=== PATIENT | female | born 1975 | race Two or more races ===

== ENCOUNTER 2016-12-24 05:00 | Emergency (ER) | payer MEDICAID ==
[2016-12-24 05:06] VITALS: RESP 16
[2016-12-24] MEDS ORDERED: ONDANSETRON 4 MG/2 ML VIAL IVP ONE (05:13)
[2016-12-24] MEDS ORDERED: HYDROmorphONE/DILAUDID 1 MG/ML SYR IVP ONE (05:13)
[2016-12-24] MEDS ORDERED: NS 1,000 ML IV ONE (05:13)
--- NOTE | 2016-12-24 05:16 | EDPHY ---
H & P Stated Complaint: abd pain, green/bea like stool, Hx of gallstones Time Seen by Provider: 12/24/16 05:09 HPI/ROS: CHIEF COMPLAINT: Right upper quadrant pain HISTORY OF PRESENT ILLNESS: The patient is a 41-year-old female who comes to the emergency department complaining of right upper quadrant pain that radiates to her back. She has had the symptoms intermittently the last several years and has been told that she needs her gallbladder out. She is scheduled to have it out in February. She developed pain this morning around 3:00 a.m. the woke from sleep. She has vomited once. She denies having any fevers or hematemesis. REVIEW OF SYSTEMS: Constitutional: denies: chills, fever, recent illness, recent injury EENTM: denies: blurred vision, double vision, nose congestion Respiratory: denies: cough, shortness of breath Cardiac: denies: chest pain, irregular heart rate, lightheadedness, palpitations Gastrointestinal/Abdominal: denies: abdominal pain, diarrhea, nausea, vomiting, blood streaked stools Genitourinary: denies: dysuria, frequency, hematuria, pain Musculoskeletal: denies: joint pain, muscle pain Skin: denies: lesions, rash, jaundice, bruising Neurological: denies: headache, numbness, paresthesia, tingling, dizziness, weakness Hematologic/Lymphatic: denies: blood clots, easy bleeding, easy bruising Immunologic/allergic: denies: HIV/AIDS, transplant EXAM: GENERAL: Well-appearing, well-nourished and in no acute distress. HEAD: Atraumatic, normocephalic. EYES: Pupils equal round and reactive to light, extraocular movements intact, sclera anicteric, conjunctiva are normal. ENT: TMs normal, nares patent, oropharynx clear without exudates. Moist mucous membranes. NECK: Normal range of motion, supple without lymphadenopathy or JVD. LUNGS: Breath sounds clear to auscultation bilaterally and equal. No wheezes rales or rhonchi. HEART: Regular rate and rhythm without murmurs, rubs or gallops. ABDOMEN: Soft, nontender, normoactive bowel sounds. No guarding, no rebound. No masses appreciated. BACK: No CVA tenderness, no spinal tenderness, step-offs or deformities EXTREMITIES: Normal range of motion, no pitting or edema. No clubbing or cyanosis. NEUROLOGICAL: Cranial nerves II through XII grossly intact. Normal speech, normal gait. 5/5 strength, normal movement in all extremities, normal sensation PSYCH: Normal mood, normal affect. SKIN: Warm, dry, normal turgor, no visible rashes or lesions. Source: Patient Exam Limitations: No limitations - Personal History LMP (Females 10-55): 15-21 Days Ago Current Tetanus/Diphtheria Vaccine: Yes Tetanus Vaccine Date: 2015 - Medical/Surgical History Hx Asthma: No Hx Chronic Respiratory Disease: No Hx Diabetes: No Hx Cardiac Disease: No Hx Renal Disease: No Hx Cirrhosis: No Hx Alcoholism: No Hx HIV/AIDS: No Hx Splenectomy or Spleen Trauma: No Other PMH: PMHx: Gall stones. PSHx: denies - Family History Significant Family History: No pertinent family hx - Social History Smoking Status: Current every day smoker Alcohol Use: Sober Drug Use: None Constitutional: Initial Vital Signs Temperature (C) 36.3 C 12/24/16 05:02 Heart Rate 66 12/24/16 05:02 Respiratory Rate 16 12/24/16 05:02 Blood Pressure 127/76 H 12/24/16 05:02 O2 Sat (%) 97 12/24/16 05:02 O2 Delivery Mode Nasal Cannula O2 (L/minute) 2 Allergies/Adverse Reactions: No Known Allergies Allergy (Verified 07/09/16 08:48) Home Medications: Medication Instructions Recorded Ondansetron Odt [Zofran Odt 4 mg 4 mg PO Q4 PRN #20 tab 12/24/16 (RX)] oxyCODONE/APAP 5/325 [Percocet 1 - 2 tab PO Q4H PRN #7 tab 12/24/16 5/325 (*)] Medical Decision Making - Diagnostics Imaging: Discussed imaging studies w/ docket specialist Radiologist ED Course/Re-evaluation: 6:15 a.m. the patient is feeling much better. We discussed her imaging and lab results which are reassuring. Her LFTs are slightly elevated but significantly improved compared to her last visit. She has an appointment to have her gallbladder out Dr. Rouse. I encouraged her to keep this plan. She will follow up with [facility]-for repeat lab work . She is requesting oxycodone for pain control and I will also give her a take-home pack of Zofran. We discussed indications for returning to the emergency department. Differential Diagnosis: Partial list of the Differential diagnosis considered include but were not limited to; gallstone, pancreatitis, hepatitis and although unlikely based on the history and physical exam, I also considered peptic ulcer disease, appendicitis, diverticulitis, hernia. I discussed these differential diagnoses and the plan with the patient as well as the usual and expected course. The patient understands that the diagnosis is provisional and that in medicine we are not always correct and that further workup is often warranted. Usual and customary warnings were given. All of the patient's questions were answered. The patient was instructed to return to the emergency department should the symptoms at all worsen or return, otherwise to followup with the physician as we discussed. - Data Points Laboratory Results: Laboratory Results 12/24/16 05:25 12/24/16 05:25 12/24/16 12/24/16 12/24/16 05:25 05:25 05:25 WBC 10.45 10^3/uL H 10^3/uL (3.80-9.50) RBC 4.54 10^6/uL 10^6/uL (4.18-5.33) Hgb 14.3 g/dL g/dL (12.6-16.3) Hct 42.2 % % (38.0-47.0) MCV 93.0 fL fL (81.5-99.8) MCH 31.5 pg pg (27.9-34.1) MCHC 33.9 g/dL g/dL (32.4-36.7) RDW 12.8 % % (11.5-15.2) Plt Count 371 10^3/uL 10^3/uL (150-400) MPV 9.8 fL fL (8.7-11.7) Neut % (Auto) 62.3 % % (39.3-74.2) Lymph % (Auto) 25.5 % % (15.0-45.0) [place] % (Auto) 7.4 % % (4.5-13.0) Eos % (Auto) 3.6 % % (0.6-7.6) Baso % (Auto) 0.6 % % (0.3-1.7) Nucleat RBC Rel Count 0.0 % % (0.0-0.2) Absolute Neuts (auto) 6.52 10^3/uL H 10^3/uL (1.70-6.50) Absolute Lymphs (auto) 2.66 10^3/uL 10^3/uL (1.00-3.00) Absolute Monos (auto) 0.77 10^3/uL 10^3/uL (0.30-0.80) Absolute Eos (auto) 0.38 10^3/uL 10^3/uL (0.03-0.40) Absolute Basos (auto) 0.06 10^3/uL 10^3/uL (0.02-0.10) Absolute Nucleated RBC 0.00 10^3/uL 10^3/uL (0-0.01) Immature Gran % 0.6 % % (0.0-1.1) Immature Gran # 0.06 10^3/uL 10^3/uL (0.00-0.10) Sodium 136 mEq/L mEq/L (134-144) Potassium 4.1 mEq/L mEq/L (3.5-5.2) Chloride 105 mEq/L mEq/L (97-110) Carbon Dioxide 23 mEq/l mEq/l (22-31) Anion Gap 8 mEq/L mEq/L (8-16) BUN 14 mg/dL mg/dL (7-23) Creatinine 0.6 mg/dL mg/dL (0.6-1.0) Estimated GFR > 60 Glucose 103 mg/dL H mg/dL (70-100) Calcium 9.4 mg/dL mg/dL (8.5-10.4) Total Bilirubin 0.6 mg/dL mg/dL (0.1-1.4) Conjugated Bilirubin 0.4 mg/dL mg/dL (0.0-0.5) Unconjugated Bilirubin 0.2 mg/dL mg/dL (0.0-1.1) AST 143 IU/L H IU/L (14-46) ALT 119 IU/L H IU/L (9-52) Alkaline Phosphatase 73 IU/L IU/L (38-126) Total Protein 7.5 g/dL g/dL (6.3-8.2) Albumin 4.4 g/dL g/dL (3.5-5.0) Lipase 61.0 IU/L IU/L (23-300) Beta HCG, Qual NEGATIVE Medications Given: Discontinued Medications Hydromorphone HCl (Dilaudid) 1 mg IVP EDNOW ONE Stop: 12/24/16 05:14 Last Admin: 12/24/16 05:31 Dose: 1 mg Sodium Chloride (Ns) 1,000 mls @ 0 mls/hr IV ONCE ONE PRN Reason: Wide Open Stop: 12/24/16 05:14 Last Admin: 12/24/16 05:30 Dose: 1,000 mls Ondansetron HCl (Zofran) 4 mg IVP EDNOW ONE Stop: 12/24/16 05:14 Last Admin: 12/24/16 05:31 Dose: 4 mg Ondansetron HCl (Zofran Odt 4 Mg Prepack#2) 1 btl TAKEHOME EDNOW ONE Stop: 12/24/16 06:15 Last Admin: 12/24/16 06:25 Dose: 1 btl Oxycodone/Acetaminophen (Percocet 5/325mg Prepack#4) 1 btl TAKEHOME EDNOW ONE Stop: 12/24/16 06:15 Last Admin: 12/24/16 06:26 Dose: 1 btl Departure - Departure Disposition: Home, Routine, Self-Care Clinical Impression: Gallstone Qualifiers: Cholecystitis presence: without cholecystitis Biliary obstruction: without biliary obstruction Qualified Code(s): K80.20 - Calculus of gallbladder without cholecystitis without obstruction Condition: Fair Instructions: Oxycodone/Acetaminophen (By mouth), Ondansetron (By mouth), Biliary Colic (ED), Gallstones (ED) Referrals: Renetta Byrne NP [Primary Care Provider] - As per Instructions Ashly oRuse MD [Medical Doctor] - As per Instructions Prescriptions: Ondansetron Odt [Zofran Odt 4 mg (RX)] 4 mg PO Q4 PRN #20 tab PRN Reason: Nausea & Vomiting oxyCODONE/APAP 5/325 [Percocet 5/325 (*)] 1 - 2 tab PO Q4H PRN #7 tab PRN Reason: Pain, Severe
[2016-12-24 05:43] LABS: % IMMATURE GRANULYOCYTES 0.6 % (0.0-1.1); ABSOLUTE IMMATURE GRANULOCYTES 0.06 10^3/uL (0.00-0.10); ADD DIFF? NO; ADD MORPH? NO; ADD SCAN? NO; ATYPICAL LYMPHOCYTE FLAG 20 (0-99); FRAGMENT RBC FLAG 0 (0-99); HEMATOCRIT 42.2 % (38.0-47.0); HEMOGLOBIN 14.3 g/dL (12.6-16.3); LEFT SHIFT FLG 0 (0-99); LIPEMIA HEMOLYSIS FLAG 90 (0-99); MEAN CELL HEMOGLOBIN 31.5 pg (27.9-34.1); MEAN CELL HEMOGLOBIN CONCENTR. 33.9 g/dL (32.4-36.7); MEAN PLATELET VOLUME 9.8 fL (8.7-11.7); PLATELET CLUMPS FLAG 0 (0-99); PLATELET COUNT 371 10^3/uL (150-400); RED BLOOD CELL COUNT 4.54 10^6/uL (4.18-5.33); RED CELL DISTRIBUTION WIDTH 12.8 % (11.5-15.2)
[2016-12-24 05:55] LABS: ALANINE AMINOTRANSFERASE 119 IU/L (9-52); ALBUMIN 4.4 g/dL (3.5-5.0); ALKALINE PHOSPHATASE 73 IU/L (38-126); ANION GAP 8 mEq/L (8-16); ASPARTATE AMINOTRANSFERASE 143 IU/L (14-46); BILIRUBIN,TOTAL 0.6 mg/dL (0.1-1.4); BILIRUBIN-CONJUGATED 0.4 mg/dL (0.0-0.5); BILIRUBIN-UNCONJUGATED 0.2 mg/dL (0.0-1.1); CALCIUM 9.4 mg/dL (8.5-10.4); CARBON DIOXIDE 23 mEq/l (22-31); CHLORIDE 105 mEq/L (97-110); CREATININE 0.6 mg/dL (0.6-1.0); GLOMERULAR FILTRATION RATE > 60; GLUCOSE 103 mg/dL (70-100); POTASSIUM 4.1 mEq/L (3.5-5.2); SODIUM 136 mEq/L (134-144); TOTAL PROTEIN 7.5 g/dL (6.3-8.2)
[2016-12-24 06:07] VITALS: BP 108/60; PULSE 61; O2SAT 95
[2016-12-24] MEDS ORDERED: OXYCODONE/APAP 5/325MG PREPACK#4 BTL TAKEHOME ONE (06:14)
[2016-12-24] MEDS ORDERED: ONDANSETRON 4MG PREPACK#2 BTL TAKEHOME ONE (06:14)
[2016-12-24 06:28] VITALS: TEMP 97.7
== END 2016-12-24 06:28 | disposition home or self-care (01) ==
DX: K80.20 Calculus of gallbladder without cholecystitis without obstruction (principal); F17.200 Nicotine dependence, unspecified, uncomplicated
CPT/HCPCS: 96374; J1170; J2405

== ENCOUNTER 2016-12-27 15:01 | Emergency (ER) | payer MEDICAID ==
[2016-12-27] MEDS ORDERED: OXYCODONE/APAP 5/325 TAB PO ONE (15:14)
[2016-12-27] MEDS ORDERED: NS 1,000 ML IV ONE (16:08)
--- NOTE | 2016-12-27 16:24 | EDPHY ---
H & P Time Seen by Provider: 12/27/16 16:05 HPI/ROS: Chief complaint. Abdominal pain HPI. 41-year-old female seen on December 24 for abdominal pain with diagnosis of cholelithiasis but not cholecystitis. She had been vomiting and having right upper quadrant abdominal pain that was worse after eating. With medication in the emergency department she felt better. She was discharged with follow-up to surgeon. She has thus appointment with surgeon on January 13. However she continues to have right upper quadrant pain and some bloating. No fever. She has been told previously that she needs her gallbladder taken out. She would like to have it removed as soon as possible. ROS Constitutional. no fever/chills, no weakness Eyes. no problems with vision ENT. no sore throat, no nasal drainage Cardiovascular. no chest pain Respiratory. no shortness of breath, no cough Abdominal. Right upper quadrant abdominal pain with some nausea . no problems urinating MS. no calf pain/swelling, no neck/back pain, no joint pain Skin. no rash Lymph. no swollen glands Neuro. no headache, no dizziness, no difficulty walking or with speech Past Medical/Surgical History: Gallbladder disease Social History: Single, nonsmoker, no alcohol Smoking Status: Former smoker Physical Exam: General Appearance: Alert well-developed female moderate distress vital signs are stable Eyes: Pupils equal and round no pallor or injection. ENT, Mouth: Mucous membranes are moist. Respiratory: There are no retractions, lungs are clear to auscultation. Cardiovascular: Regular rate and rhythm. Gastrointestinal: Abdomen is soft with tenderness in the right upper quadrant. No masses. Bowel sounds normally Neurological: Awake and alert, sensory and motor exams grossly normal. Skin: Warm and dry, no rashes. Musculoskeletal: Neck is supple nontender. Extremities symmetrical, full range of motion. Psychiatric: Patient is oriented X 3, there is no agitation. Constitutional: Initial Vital Signs Temperature (C) 36.8 C 12/27/16 15:11 Heart Rate 87 12/27/16 15:11 Respiratory Rate 17 12/27/16 15:11 Blood Pressure 111/68 12/27/16 15:11 O2 Sat (%) 98 12/27/16 15:11 O2 Delivery Mode Room Air Allergies/Adverse Reactions: No Known Allergies Allergy (Verified 12/27/16 15:11) Home Medications: Medication Instructions Recorded Ondansetron Odt [Zofran Odt 4 mg 4 mg PO Q4 PRN #20 tab 12/24/16 (RX)] oxyCODONE/APAP 5/325 [Percocet 1 - 2 tab PO Q4H PRN #7 tab 12/24/16 5/325 (*)] Ondansetron Odt [Zofran Odt] 4 mg PO Q4PRN PRN #4 tab 12/27/16 oxyCODONE/APAP 5/325 [Percocet 1 tab PO Q4-6PRN PRN #14 tab 12/27/16 5/325] Medical Decision Making Procedures: IV normal saline. Patient was given Percocet at triage ED Course/Re-evaluation: I consulted and discussed case with Dr. Rupali joyner who has seen the patient in consultation previously. Dr. Zapien in a is able to see the patient next week on Friday or the PA can see the patient on Friday and they will schedule surgery for Friday and or Friday next week. If the patient is not okay with this Dr. Rupali joyner asked me to call Dr. Mccabe who is the surgeon data communications analyst today for consultation On re-evaluation patient is stable. I offered to call surgeon data communications analyst as described above. Patient would prefer to wait and see Dr. Brothers or her PA next Friday or Friday Patient is encouraged to return over the weekend for worsening symptoms Differential Diagnosis: I considered cholecystitis , pancreatitis, cholelithiasis - Data Points Laboratory Results: Laboratory Results 12/27/16 16:30 12/27/16 16:30 12/27/16 12/27/16 12/27/16 16:30 16:30 16:30 WBC 9.73 10^3/uL H 10^3/uL (3.80-9.50) RBC 4.37 10^6/uL 10^6/uL (4.18-5.33) Hgb 13.5 g/dL g/dL (12.6-16.3) Hct 40.6 % % (38.0-47.0) MCV 92.9 fL fL (81.5-99.8) MCH 30.9 pg pg (27.9-34.1) MCHC 33.3 g/dL g/dL (32.4-36.7) RDW 12.8 % % (11.5-15.2) Plt Count 381 10^3/uL 10^3/uL (150-400) MPV 10.0 fL fL (8.7-11.7) Neut % (Auto) 62.9 % % (39.3-74.2) Lymph % (Auto) 26.0 % % (15.0-45.0) [place] % (Auto) 8.3 % % (4.5-13.0) Eos % (Auto) 2.1 % % (0.6-7.6) Baso % (Auto) 0.4 % % (0.3-1.7) Nucleat RBC Rel Count 0.0 % % (0.0-0.2) Absolute Neuts (auto) 6.12 10^3/uL 10^3/uL (1.70-6.50) Absolute Lymphs (auto) 2.53 10^3/uL 10^3/uL (1.00-3.00) Absolute Monos (auto) 0.81 10^3/uL H 10^3/uL (0.30-0.80) Absolute Eos (auto) 0.20 10^3/uL 10^3/uL (0.03-0.40) Absolute Basos (auto) 0.04 10^3/uL 10^3/uL (0.02-0.10) Absolute Nucleated RBC 0.00 10^3/uL 10^3/uL (0-0.01) Immature Gran % 0.3 % % (0.0-1.1) Immature Gran # 0.03 10^3/uL 10^3/uL (0.00-0.10) Sodium 141 mEq/L mEq/L (134-144) Potassium 4.1 mEq/L mEq/L (3.5-5.2) Chloride 109 mEq/L mEq/L (97-110) Carbon Dioxide 23 mEq/l mEq/l (22-31) Anion Gap 9 mEq/L mEq/L (8-16) BUN 12 mg/dL mg/dL (7-23) Creatinine 0.6 mg/dL mg/dL (0.6-1.0) Estimated GFR > 60 Glucose 85 mg/dL mg/dL (70-100) Calcium 9.5 mg/dL mg/dL (8.5-10.4) Total Bilirubin 0.4 mg/dL mg/dL (0.1-1.4) Conjugated Bilirubin 0.4 mg/dL mg/dL (0.0-0.5) Unconjugated Bilirubin 0.0 mg/dL mg/dL (0.0-1.1) AST 158 IU/L H IU/L (14-46) ALT 168 IU/L H IU/L (9-52) Alkaline Phosphatase 80 IU/L IU/L (38-126) Total Protein 7.1 g/dL g/dL (6.3-8.2) Albumin 4.4 g/dL g/dL (3.5-5.0) Lipase 69.0 IU/L IU/L (23-300) Beta HCG, Qual NEGATIVE Medications Given: Discontinued Medications Sodium Chloride (Ns) 1,000 mls @ 0 mls/hr IV ONCE ONE PRN Reason: Wide Open Stop: 12/27/16 16:09 Last Admin: 12/27/16 16:29 Dose: 1,000 mls Oxycodone/Acetaminophen (Percocet 5/325) 1 tab PO EDNOW ONE Stop: 12/27/16 15:15 Last Admin: 12/27/16 15:17 Dose: 1 tab Departure - Departure Disposition: Home, Routine, Self-Care Clinical Impression: Abdominal pain Qualifiers: Abdominal location: right upper quadrant Qualified Code(s): R10.11 - Right upper quadrant pain Condition: Good Instructions: Gallstones (ED), Biliary Colic (ED) Additional Instructions: Drink plenty of fluids and stay hydrated. Caution with fatty and oily foods. Percocet as needed for pain. Zofran as needed for nausea. Return over the weekend for worsening symptoms including fever. Call Dr. Meng office on Friday morning for follow-up appointment on Friday with the PA or Friday with Dr. Brothers Referrals: [facility] [Other] - As per Instructions Ashly Rouse MD [Medical Doctor] - 2-3 days without fail Prescriptions: Ondansetron Odt [Zofran Odt] 4 mg PO Q4PRN PRN #4 tab PRN Reason: Nausea/Vomiting, Use 1st oxyCODONE/APAP 5/325 [Percocet 5/325] 1 tab PO Q4-6PRN PRN #14 tab PRN Reason: Pain, Moderate
[2016-12-27 16:40] LABS: % IMMATURE GRANULYOCYTES 0.3 % (0.0-1.1); ABSOLUTE IMMATURE GRANULOCYTES 0.03 10^3/uL (0.00-0.10); ADD DIFF? NO; ADD MORPH? NO; ADD SCAN? NO; ATYPICAL LYMPHOCYTE FLAG 20 (0-99); FRAGMENT RBC FLAG 0 (0-99); HEMATOCRIT 40.6 % (38.0-47.0); HEMOGLOBIN 13.5 g/dL (12.6-16.3); LEFT SHIFT FLG 0 (0-99); LIPEMIA HEMOLYSIS FLAG 80 (0-99); MEAN CELL HEMOGLOBIN 30.9 pg (27.9-34.1); MEAN CELL HEMOGLOBIN CONCENTR. 33.3 g/dL (32.4-36.7); MEAN CELL VOLUME 92.9 fL (81.5-99.8); PLATELET CLUMPS FLAG 10 (0-99); PLATELET COUNT 381 10^3/uL (150-400); RED BLOOD CELL COUNT 4.37 10^6/uL (4.18-5.33); RED CELL DISTRIBUTION WIDTH 12.8 % (11.5-15.2)
[2016-12-27 16:57] LABS: ALANINE AMINOTRANSFERASE 168 IU/L (9-52); ALBUMIN 4.4 g/dL (3.5-5.0); ALKALINE PHOSPHATASE 80 IU/L (38-126); ANION GAP 9 mEq/L (8-16); ASPARTATE AMINOTRANSFERASE 158 IU/L (14-46); BILIRUBIN,TOTAL 0.4 mg/dL (0.1-1.4); BILIRUBIN-CONJUGATED 0.4 mg/dL (0.0-0.5); CALCIUM 9.5 mg/dL (8.5-10.4); CARBON DIOXIDE 23 mEq/l (22-31); CHLORIDE 109 mEq/L (97-110); CREATININE 0.6 mg/dL (0.6-1.0); GLOMERULAR FILTRATION RATE > 60; GLUCOSE 85 mg/dL (70-100); POTASSIUM 4.1 mEq/L (3.5-5.2); SODIUM 141 mEq/L (134-144); TOTAL PROTEIN 7.1 g/dL (6.3-8.2)
[2016-12-27 18:00] VITALS: BP 105/73; PULSE 53; RESP 16; TEMP 97.9; O2SAT 95
== END 2016-12-27 17:58 | disposition home or self-care (01) ==
DX: R10.11 Right upper quadrant pain (principal); Z87.891 Personal history of nicotine dependence

== ENCOUNTER 2017-01-03 10:04 | Observation (INO) | payer MEDICAID ==
[2017-01-03] MEDS ORDERED: LR 1,000 ML IV ONE (10:49)
[2017-01-03] MEDS ORDERED: ceFAZolin 2 GM/DEXTROSE 100 ML IV ONE (11:00)
[2017-01-03] MEDS ORDERED: LIDOCAINE 1% 2 ML INJ ONE (11:25)
[2017-01-03] MEDS ORDERED: MIDAZOLAM 2 MG/2 ML VIAL ONE (11:30)
[2017-01-03] MEDS ORDERED: PROPOFOL 200 MG/20 ML VIAL ONE (11:42)
[2017-01-03] MEDS ORDERED: fentaNYL 100 MCG/2 ML INJ ONE ×2 (11:42→13:02)
[2017-01-03] MEDS ORDERED: DEXAMETHASONE 4 MG/ML VIAL ONE ×2 (11:52)
[2017-01-03] MEDS ORDERED: KETOROLAC 30 MG/1 ML SDV ONE (11:52)
[2017-01-03] MEDS ORDERED: SUGAMMADEX SODIUM 200 MG/2 ML VIAL IVP ONE (11:52)
[2017-01-03] MEDS ORDERED: ROCURONIUM 50 MG/5 ML VIAL ONE (11:52)
[2017-01-03] MEDS ORDERED: LIDOCAINE 2% 5 ML SDV ONE (11:52)
[2017-01-03] MEDS ORDERED: ONDANSETRON 4 MG/2 ML VIAL ONE (11:52)
[2017-01-03] MEDS ORDERED: HYDROmorphONE/DILAUDID 1 MG/ML SYR ONE ×2 (13:26→13:58)
--- NOTE | 2017-01-03 13:44 | GOP ---
[f rep st] OPERATIVE REPORT DATE OF OPERATION: 01/03/2017 SURGEON: Ashly Rouse MD TAX ATTORNEY: Nu Sheriff PA-C. ANESTHESIA: General. ANESTHESIOLOGIST: Rodo Falcon MD. PREOPERATIVE DIAGNOSIS: Symptomatic cholelithiasis. POSTOPERATIVE DIAGNOSIS: Chronic cholecystitis with cholelithiasis. PROCEDURE PERFORMED: Laparoscopic cholecystectomy. FINDINGS: Tense gallbladder. SPECIMENS: Gallbladder. ESTIMATED BLOOD LOSS: 10 cc. INDICATIONS: The patient is a 41-year-old woman who has had known cholelithiasis. Her symptoms have escalated. Her labs were still within normal limits. DESCRIPTION OF PROCEDURE: The patient was brought into the operating room and placed supine on the table, and general anesthesia was administered. Her abdomen was prepped and draped in the usual sterile fashion. I infiltrated all sites with 0.5% Marcaine prior to making incisions. I made an incision by her umbilicus. I elevated it; I inserted the Veress needle. It passed the hanging drop test. Her abdomen insufflated easily to a pressure of 15 mmHg. I placed a 5 mm trocar with a camera at this site. There were no injuries from Veress needle placement. Under direct vision I placed a 10 mm subxiphoid trocar and two 5 mm trocars along the right costal margin. The gallbladder was tense. I inserted a needle to aspirate it, but very little clear bile was returned. I did aspirate enough to lift the gallbladder cephalad. I then was able to remove adhesions so that I could retract the gallbladder laterally to expose the triangle of [place]. I continued to perform adhesiolysis. I was able to identify the cystic artery and cystic duct. They were skeletonized and each directly entering the gallbladder. They were each singly clipped toward the gallbladder, doubly clipped distally and transected. The gallbladder was removed from the gallbladder fossa with electrocautery. Hemostasis was achieved on the liver bed. The gallbladder was placed in an EndoCatch bag and removed via the 10 mm trocar. Suction irrigation was performed. The clips were in satisfactory position. The fascia at the 10 mm trocar site was closed with 0 Vicryl. Skin closed with 4-0 Monocryl. Dermabond applied. She was awakened in the operating room, extubated, and transferred to PACU in stable condition. /[id number]/MODL MTDD
[2017-01-03] MEDS ORDERED: HYDROCODONE/APAP 5/325 TAB ONE (15:52)
[2017-01-03] MEDS ORDERED: ACETAMINOPHEN 325 MG TAB PO PRN (16:19)
[2017-01-03] MEDS ORDERED: ONDANSETRON 4 MG/2 ML VIAL IVP PRN (16:19)
[2017-01-03] MEDS ORDERED: ONDANSETRON DISINTEGRATING 4 MG TAB PO PRN (16:19)
[2017-01-03] MEDS ORDERED: diphenhydrAMINE 25 MG CAP PO PRN (16:19)
[2017-01-03] MEDS ORDERED: NS 1,000 ML IV SCH (16:30)
[2017-01-03] MEDS: KETOROLAC 15 MG/1 ML SDV IVP SCH (17:43)
[2017-01-03] MEDS: OXYCODONE/APAP 5/325 TAB PO PRN (17:43)
[2017-01-04] MEDS: KETOROLAC 15 MG/1 ML SDV IVP SCH ×3 (00:35→13:17)
[2017-01-04] MEDS: OXYCODONE/APAP 5/325 TAB PO PRN ×4 (00:35→13:56)
--- NOTE | 2017-01-04 10:52 | SOAPPROG ---
SOAP Progress Note Assessment/Plan: Assessment: FEELING OK/ CO INCISIONAL PAIN/ EATING WELL/ NONICTERIC/ AFEBRILE/ WOUNDS OK ABD SOFT WITH BS/ CHEST CLEAR/ COR RR Plan:HOME 01/04/17 10:49 Objective: Vital Signs Temp Pulse Resp BP Pulse Ox 36.7 C 63 18 125/73 H 96 01/04/17 08:00 01/04/17 08:00 01/04/17 08:00 01/04/17 08:00 01/04/17 08:00 01/03/17 01/04/17 01/05/17 05:59 05:59 05:59 Intake Total 2739 Output Total 2715 Balance 24 ICD10 Worksheet Patient Problems: Problems Problem Status Onset Cholelithiasis Acute - ICD10 Problem Qualifiers (1) Cholelithiasis Qualifiers: Cholelithiasis location: gallbladder Cholecystitis presence: with cholecystitis Cholangitis presence: C Cholecystitis acuity: C Cholangitis acuity: C Biliary obstruction: B
[2017-01-04 12:04] VITALS: BP 115/80; PULSE 79; RESP 118; TEMP 98.8; O2SAT 95
[2017-01-04 13:08] LABS: % IMMATURE GRANULYOCYTES 0.2 % (0.0-1.1); ABSOLUTE IMMATURE GRANULOCYTES 0.02 10^3/uL (0.00-0.10); ADD DIFF? NO; ADD MORPH? NO; ADD SCAN? NO; ATYPICAL LYMPHOCYTE FLAG 10 (0-99); FRAGMENT RBC FLAG 0 (0-99); HEMATOCRIT 38.8 % (38.0-47.0); LEFT SHIFT FLG 0 (0-99); LIPEMIA HEMOLYSIS FLAG 80 (0-99); MEAN CELL HEMOGLOBIN 31.3 pg (27.9-34.1); MEAN CELL HEMOGLOBIN CONCENTR. 33.5 g/dL (32.4-36.7); MEAN CELL VOLUME 93.5 fL (81.5-99.8); MEAN PLATELET VOLUME 9.9 fL (8.7-11.7); PLATELET CLUMPS FLAG 0 (0-99); PLATELET COUNT 355 10^3/uL (150-400); RED BLOOD CELL COUNT 4.15 10^6/uL (4.18-5.33)
[2017-01-04 13:25] LABS: ALANINE AMINOTRANSFERASE 94 IU/L (9-52); ALBUMIN 3.8 g/dL (3.5-5.0); ALKALINE PHOSPHATASE 53 IU/L (38-126); AMYLASE 63 IU/L (30-110); ASPARTATE AMINOTRANSFERASE 66 IU/L (14-46); BILIRUBIN,TOTAL 0.5 mg/dL (0.1-1.4); BILIRUBIN-CONJUGATED 0.3 mg/dL (0.0-0.5); BILIRUBIN-UNCONJUGATED 0.2 mg/dL (0.0-1.1); TOTAL PROTEIN 6.2 g/dL (6.3-8.2)
== END 2017-01-04 14:31 | disposition home or self-care (01) ==
LOC: FSGY 10:04 → F3E 15:08
PROVIDERS: ADMIT Surgery; ATTEND Surgery
PROC: 0FT44ZZ Resection of Gallbladder, Percutaneous Endoscopic Approach (ICD-10-PCS; principal; 2017-01-03 11:30)
DX: K80.10 Calculus of gallbladder with chronic cholecystitis without obstruction (principal); F17.200 Nicotine dependence, unspecified, uncomplicated
CPT/HCPCS: 47562; G0378; J0690; J1100; J1170; J1885; J2250; J2405; J2704; J3010

== ENCOUNTER 2017-05-20 02:01 | Emergency (ER) | payer MEDICAID ==
--- NOTE | 2017-05-20 03:02 | EDPHY ---
H & P Stated Complaint: abd pain around prior surgery site Time Seen by Provider: 05/20/17 02:34 HPI/ROS: Chief Complaint: Abdominal pain HPI: 41-year-old female presenting with 2 days of pain around her belly button. Patient states she had a laparoscopic cholecystectomy in December. She has been having some pain in her epigastrium for the last 2 days primarily on her umbilicus. It is not been red. There has been no discharge. She has not felt any bulging or masses. No fevers or chills. Some nausea. No diarrhea. No urinary symptoms. Last menstrual period was a month ago. Patient does not believe she is as she just had the Depo shot done and had a negative test at that time. Denies other past medical history. No melena. No diarrhea or constipation. ROS: 10 point Review of Systems is negative except as noted in the HPI. PMH: Cholecystectomy Social History: No smoking, rare alcohol, no recreational drug use Family History: non-contributory Physical Exam: Gen: Awake, Alert, No Distress HEENT: Nose: no rhinorrhea Eyes: PERRLA, EOMI Mouth: Moist mucosa Neck: Supple, no JVD Chest: nontender, lungs clear to auscultation Heart: S1, S2 normal, no murmur Abd: Soft, moderate epigastric tenderness and periumbilical tenderness. There are no masses noted. Abdomen is obese., no guarding Back: no CVA tenderness, no midline tenderness Ext: no edema, non-tender Skin: no rash Neuro: CN II-XII intact, Sensation grossly intact, Strength 5/5 in bilateral upper and lower extremities - Personal History LMP (Females 10-55): 15-21 Days Ago Current Tetanus/Diphtheria Vaccine: Yes Tetanus Vaccine Date: 2015 - Medical/Surgical History Hx Asthma: No Hx Chronic Respiratory Disease: No Hx Diabetes: No Hx Cardiac Disease: No Hx Renal Disease: No Hx Cirrhosis: No Hx Alcoholism: No Hx HIV/AIDS: No Hx Splenectomy or Spleen Trauma: No Other PMH: PMHx: Gall stones. PSHx: cholecystectomy - Social History Smoking Status: Heavy smoker Constitutional: Initial Vital Signs Temperature (C) 36.6 C 05/20/17 02:03 Heart Rate 66 05/20/17 02:03 Respiratory Rate 16 05/20/17 02:03 Blood Pressure 113/67 05/20/17 02:03 O2 Sat (%) 99 05/20/17 02:03 O2 Delivery Mode Room Air Allergies/Adverse Reactions: No Known Allergies Allergy (Verified 12/27/16 15:11) Home Medications: Medication Instructions Recorded NK [No Known Home Meds] 05/20/17 Medical Decision Making - Diagnostics Imaging Results: CT scan shows some shotty right lower quadrant lymph nodes, no hernia, normal appendix, moderate amount of constipation. Interpreted by Dr. Danielle. ED Course/Re-evaluation: 41-year-old female with abdominal pain. No evidence of hernia. Abdomen is soft and quite benign. CT scan consistent with mesenteric adenitis with moderate constipation. Normal appendix. She is otherwise not toxic appearing. Laboratory evaluations are unremarkable. Will discharge with constipation treatment. Will avoid narcotics as they can contribute to the constipation. Will recommend anti-inflammatories. Follow up with primary care physician. - Data Points Laboratory Results: Laboratory Results 05/20/17 03:25 05/20/17 03:25 05/20/17 05/20/17 05/20/17 03:25 03:25 03:25 WBC 9.07 10^3/uL 10^3/uL (3.80-9.50) RBC 4.88 10^6/uL 10^6/uL (4.18-5.33) Hgb 15.2 g/dL g/dL (12.6-16.3) Hct 45.1 % % (38.0-47.0) MCV 92.4 fL fL (81.5-99.8) MCH 31.1 pg pg (27.9-34.1) MCHC 33.7 g/dL g/dL (32.4-36.7) RDW 13.0 % % (11.5-15.2) Plt Count 342 10^3/uL 10^3/uL (150-400) MPV 10.0 fL fL (8.7-11.7) Neut % (Auto) 49.2 % % (39.3-74.2) Lymph % (Auto) 35.2 % % (15.0-45.0) Wise % (Auto) 8.8 % % (4.5-13.0) Eos % (Auto) 5.7 % % (0.6-7.6) Baso % (Auto) 0.7 % % (0.3-1.7) Nucleat RBC Rel Count 0.0 % % (0.0-0.2) Absolute Neuts (auto) 4.46 10^3/uL 10^3/uL (1.70-6.50) Absolute Lymphs (auto) 3.19 10^3/uL H 10^3/uL (1.00-3.00) Absolute Monos (auto) 0.80 10^3/uL 10^3/uL (0.30-0.80) Absolute Eos (auto) 0.52 10^3/uL H 10^3/uL (0.03-0.40) Absolute Basos (auto) 0.06 10^3/uL 10^3/uL (0.02-0.10) Absolute Nucleated RBC 0.00 10^3/uL 10^3/uL (0-0.01) Immature Gran % 0.4 % % (0.0-1.1) Immature Gran # 0.04 10^3/uL 10^3/uL (0.00-0.10) Sodium 140 mEq/L mEq/L (134-144) Potassium 4.1 mEq/L mEq/L (3.5-5.2) Chloride 106 mEq/L mEq/L (97-110) Carbon Dioxide 22 mEq/l mEq/l (22-31) Anion Gap 12 mEq/L mEq/L (8-16) BUN 9 mg/dL mg/dL (7-23) Creatinine 0.7 mg/dL mg/dL (0.6-1.0) Estimated GFR > 60 Glucose 83 mg/dL mg/dL (70-100) Calcium 10.1 mg/dL mg/dL (8.5-10.4) Total Bilirubin 0.3 mg/dL mg/dL (0.1-1.4) AST 23 IU/L IU/L (14-46) ALT 32 IU/L IU/L (9-52) Alkaline Phosphatase 56 IU/L IU/L (38-126) Total Protein 8.0 g/dL g/dL (6.3-8.2) Albumin 4.6 g/dL g/dL (3.5-5.0) Lipase 72 IU/L IU/L (23-300) Beta HCG, Qual NEGATIVE Urine Color Urine Appearance Urine pH Ur Specific Dix Urine Protein Urine Ketones Urine Blood Urine Nitrate Urine Bilirubin Urine Urobilinogen Ur Leukocyte Esterase Urine Glucose 05/20/17 03:19 WBC RBC Hgb Hct MCV MCH MCHC RDW Plt Count MPV Neut % (Auto) Lymph % (Auto) Wise % (Auto) Eos % (Auto) Baso % (Auto) Nucleat RBC Rel Count Absolute Neuts (auto) Absolute Lymphs (auto) Absolute Monos (auto) Absolute Eos (auto) Absolute Basos (auto) Absolute Nucleated RBC Immature Gran % Immature Gran # Sodium Potassium Chloride Carbon Dioxide Anion Gap BUN Creatinine Estimated GFR Glucose Calcium Total Bilirubin AST ALT Alkaline Phosphatase Total Protein Albumin Lipase Beta HCG, Qual Urine Color PALE YELLOW Urine Appearance CLEAR Urine pH 5.0 (5.0-7.5) Ur Specific Dix 1.005 (1.002-1.030) Urine Protein NEGATIVE (NEGATIVE) Urine Ketones NEGATIVE (NEGATIVE) Urine Blood NEGATIVE (NEGATIVE) Urine Nitrate NEGATIVE (NEGATIVE) Urine Bilirubin NEGATIVE (NEGATIVE) Urine Urobilinogen NEGATIVE EU EU (0.2-1.0) Ur Leukocyte Esterase NEGATIVE (NEGATIVE) Urine Glucose NEGATIVE (NEGATIVE) Departure - Departure Disposition: Home, Routine, Self-Care Clinical Impression: Mesenteric adenitis, Constipation Condition: Good Instructions: Mesenteric Adenitis (ED), Constipation (ED) Additional Instructions: Make sure to drink at least eight 8 oz glasses of water a day. You may take MiraLax daily according to package instructions. If you feel constipated drink 1/2 bottle of magnesium citrate. Wait 1-2 hours. If you do not have a bowel movement after that time drink the 2nd half of the bottle. If you continues to be constipated you may use a Fleet's enema, available over- the-counter. You may take ibuprofen and acetaminophen as needed for your pain. Follow up with primary care physician in 3-4 days for further evaluation. Referrals: Irasema Beck [Primary Care Provider] - As per Instructions
[2017-05-20] MEDS ORDERED: IOPAMIDOL (ISOVUE-300) 100 ML BTL ONE (03:09)
[2017-05-20 03:32] LABS: ADD DIFF? NO; ADD MORPH? NO; ATYPICAL LYMPHOCYTE FLAG 50 (0-99); FRAGMENT RBC FLAG 0 (0-99); HEMATOCRIT 45.1 % (38.0-47.0); LEFT SHIFT FLG 0 (0-99); LIPEMIA HEMOLYSIS FLAG 80 (0-99)
[2017-05-20 03:36] LABS: % IMMATURE GRANULYOCYTES 0.4 % (0.0-1.1); ABSOLUTE IMMATURE GRANULOCYTES 0.04 10^3/uL (0.00-0.10); ADD SCAN? NO; HEMOGLOBIN 15.2 g/dL (12.6-16.3); MEAN CELL HEMOGLOBIN 31.1 pg (27.9-34.1); MEAN CELL HEMOGLOBIN CONCENTR. 33.7 g/dL (32.4-36.7); MEAN CELL VOLUME 92.4 fL (81.5-99.8); PLATELET CLUMPS FLAG 30 (0-99); PLATELET COUNT 342 10^3/uL (150-400); RED BLOOD CELL COUNT 4.88 10^6/uL (4.18-5.33)
[2017-05-20 03:41] LABS: ALANINE AMINOTRANSFERASE 32 IU/L (9-52); ALBUMIN 4.6 g/dL (3.5-5.0); ALKALINE PHOSPHATASE 56 IU/L (38-126); ANION GAP 12 mEq/L (8-16); ASPARTATE AMINOTRANSFERASE 23 IU/L (14-46); BILIRUBIN,TOTAL 0.3 mg/dL (0.1-1.4); CALCIUM 10.1 mg/dL (8.5-10.4); CARBON DIOXIDE 22 mEq/l (22-31); CHLORIDE 106 mEq/L (97-110); CREATININE 0.7 mg/dL (0.6-1.0); GLOMERULAR FILTRATION RATE > 60; GLUCOSE 83 mg/dL (70-100); POTASSIUM 4.1 mEq/L (3.5-5.2); SODIUM 140 mEq/L (134-144)
[2017-05-20 03:43] LABS: COLOR PALE YELLOW; LEUKOCYTE ESTERASE,URINE NEGATIVE (NEGATIVE); NITRITE,URINE NEGATIVE (NEGATIVE)
[2017-05-20 04:43] VITALS: RESP 18; TEMP 98.4; O2SAT 97
[2017-05-20 05:48] VITALS: BP 123/78; PULSE 65
== END 2017-05-20 05:48 | disposition home or self-care (01) ==
DX: I88.0 Nonspecific mesenteric lymphadenitis (principal); K59.00 Constipation, unspecified; F17.200 Nicotine dependence, unspecified, uncomplicated; Z90.49 Acquired absence of other specified parts of digestive tract
CPT/HCPCS: Q9967

== ENCOUNTER 2017-06-20 08:53 | Emergency (ER) | payer MEDICAID ==
[2017-06-20] MEDS ORDERED: NS 1,000 ML IV ONE (09:04)
[2017-06-20] MEDS ORDERED: HYOSCYAMINE SULFATE 0.125 MG TAB PO ONE (09:13)
[2017-06-20] MEDS ORDERED: LIDOCAINE 2% VISCOUS 15 ML UDCUP PO ONE (09:13)
[2017-06-20] MEDS ORDERED: MAG HYDROX/AL HYDROX/SIMETH 30 ML UDCUP PO ONE (09:13)
[2017-06-20] MEDS ORDERED: FAMOTIDINE 20 MG/2 ML SDV IVP ONE (09:14)
[2017-06-20 09:24] LABS: % IMMATURE GRANULYOCYTES 0.4 % (0.0-1.1); ABSOLUTE IMMATURE GRANULOCYTES 0.02 10^3/uL (0.00-0.10); ADD DIFF? NO; ADD MORPH? NO; ADD SCAN? NO; ATYPICAL LYMPHOCYTE FLAG 80 (0-99); FRAGMENT RBC FLAG 0 (0-99); HEMATOCRIT 41.8 % (38.0-47.0); HEMOGLOBIN 14.2 g/dL (12.6-16.3); LEFT SHIFT FLG 0 (0-99); LIPEMIA HEMOLYSIS FLAG 90 (0-99); MEAN CELL HEMOGLOBIN 30.8 pg (27.9-34.1); MEAN CELL VOLUME 90.7 fL (81.5-99.8); MEAN PLATELET VOLUME 10.3 fL (8.7-11.7); PLATELET CLUMPS FLAG 0 (0-99); PLATELET COUNT 289 10^3/uL (150-400); RED BLOOD CELL COUNT 4.61 10^6/uL (4.18-5.33)
--- NOTE | 2017-06-20 09:28 | EDPHY ---
General Narrative: CHIEF COMPLAINT: Abdominal pain HISTORY OF PRESENT ILLNESS: Patient complains of 2-3 days history of abdominal pain. This is epigastric. It is constant duration. Gradual onset. Moderate to severe. Associated with nausea. Described as a burning, gnawing pain. No trauma or injury. No fever chills. Pain does radiate through to the back. Worse with palpation and movement. She has had decreased appetite. No constipation or diarrhea. She was seen for similar pain here last month. She was diagnosed with mesenteric adenitis follow up with primary care physician. She had a chest x-ray performed by her that was reportedly normal. She says the pain is similar to when she was having pain prior to her cholecystectomy in December. No other associated complaints or modifying factors for this. REVIEW OF SYSTEMS: Ten systems reviewed and are negative unless otherwise noted in the HPI PCP: Dr. Beck SPECIALISTS: None PAST MEDICAL HISTORY: Cholelithiasis. PAST SURGICAL HISTORY: Cholecystectomy 2017 SOCIAL HISTORY: Smokes cigarettes. Currently quitting and down to 2 cigarettes per day. No alcohol. No illicit substance use. FAMILY HISTORY: Noncontributory EXAMINATION General Appearance: Alert, no distress Head: normocephalic, atraumatic Eyes: Pupils equal and round, no conjunctival pallor or injection ENT, Mouth: Mucous membranes moist. Airway patent. Mild erythema. Neck: Normal inspection, supple, non-tender Respiratory: Lungs are clear to auscultation. No wheezing, rhonchi or crackles Cardiovascular: Regular rate and rhythm. No murmur Gastrointestinal: Abdomen is soft and nondistended. No tympany. No rigidity. No guarding. No CVA tenderness. Mild tenderness in the epigastrium and right upper quadrant. Neurological: A&O, nonfocal, normal gait Skin: Warm and dry, no rash. No petechiae or purpura Extremities: Nontender, no pedal edema Psychiatric: Mood and affect normal DIFFERENTIAL DIAGNOSES: Including but not limited to gastritis, duodenitis, peptic ulcer disease, pancreatitis, hepatitis, colitis, ACS MDM: 9:15 a.m. Epigastric abdominal pain with history examination suggesting peptic ulcer versus gastritis as the most likely on the differential. Her abdominal exam is benign. She has a recent visit with CT scan showing normal appendix with likely mesenteric adenitis. She is status post cholecystectomy. Laboratory studies are currently being sent down. I have ordered EKG and troponin given the location of the pain, although I have virtually no suspicion of cardiac involvement. Pepcid, IV fluid and GI cocktail of in order. Plan for Toradol if her HCG is negative and her creatinine is normal. Re-evaluate after laboratory studies 9:58 a.m. Patient re-evaluated. She said that her pain started to improve for a few minutes after the initial medications but has now returned more severe. Laboratory studies are all within normal limits. Urinalysis is still pending however. I will attempt a dose of ketamine and re-evaluate. I discussed with Dr. Walsh, and he will evaluate the patient 10:45 a.m. Patient re-evaluated. She is feeling significantly better on the ketamine. She was sleeping when I enter the room but woke easily. She has been complaining of a sore throat to the RN, thus they ordered a strep test at the patient's request. This is pending. I re-evaluated this and appreciate some mild erythema but no exudate or swelling. 11:15 a.m. Patient re-evaluated. She is feeling significantly better at this time. Suspect gastritis versus peptic ulcer disease. Her rapid strep test that she requested is negative. I will discharge her home with PPI and short course of Bentyl. I would like her to contact her primary care physician to requested GI referral. We discussed ED precautions. She is comfortable with this plan and discharged home in stable condition. - History Smoking Status: Heavy smoker - Objective Vital Signs: Initial Vital Signs Temperature (C) 98.2 F 06/20/17 08:57 Heart Rate 69 06/20/17 08:57 Respiratory Rate 18 06/20/17 08:57 Blood Pressure 119/63 06/20/17 08:57 O2 Sat (%) 95 06/20/17 08:57 O2 Delivery Mode Room Air Allergies/Adverse Reactions: No Known Allergies Allergy (Verified 06/20/17 08:56) Home Medications: Medication Instructions Recorded Dicyclomine [Bentyl 20 MG (*)] 20 mg PO QID PRN #19 tab 06/20/17 Omeprazole Magnesium [Prilosec Otc] 20 mg PO DAILY #14 tablet. 06/20/17 Sucralfate [Carafate 1gm/10ml Oral 1 gm PO QID PRN #240 ml 06/20/17 Liquid (*)] Laboratory Results: Laboratory Results 06/20/17 09:10 10/27/17 09:10 Medications Given: Discontinued Medications Al Hydroxide/Mg Hydroxide (Maalox Susp) 30 ml PO ONCE ONE Stop: 06/20/17 09:14 Last Admin: 06/20/17 09:20 Dose: 30 ml Famotidine (Pepcid) 20 mg IVP EDNOW ONE Stop: 06/20/17 09:15 Last Admin: 06/20/17 09:21 Dose: 20 mg Hyoscyamine Sulfate (Levsin, Hyomax-Sl) 0.25 mg PO ONCE ONE Stop: 06/20/17 09:14 Last Admin: 06/20/17 09:20 Dose: 0.25 mg Sodium Chloride (Ns) 1,000 mls @ 0 mls/hr IV EDNOW ONE; Wide Open PRN Reason: Protocol Stop: 06/20/17 09:05 Last Admin: 06/20/17 09:21 Dose: 1,000 mls Ketamine HCl (Ketamine) 14 mg IVP EDNOW ONE Stop: 06/20/17 10:00 Last Admin: 06/20/17 10:24 Dose: 14 mg Lidocaine (Lidocaine 2% Viscous) 15 ml PO ONCE ONE Stop: 06/20/17 09:14 Last Admin: 06/20/17 09:20 Dose: 15 ml Departure - Departure Disposition: Home, Routine, Self-Care Clinical Impression: Epigastric abdominal pain Condition: Good Instructions: Peptic Ulcer (ED), Gastritis (ED), Epigastric Pain (ED) Additional Instructions: 1. Medications as prescribed as needed 2. Contact primary care physician for follow-up and possibility of GI referral 3. ED precautions as discussed Referrals: Irasema Beck [Primary Care Provider] - As per Instructions Henry Khan MD [Medical Doctor] - As per Instructions Stand Alone Forms: Work Excuse Prescriptions: Dicyclomine [Bentyl 20 MG (*)] 20 mg PO QID PRN #19 tab PRN Reason: Pain, Breakthrough Omeprazole Magnesium [Prilosec Otc] 20 mg PO DAILY #14 tablet. Sucralfate [Carafate 1gm/10ml Oral Liquid (*)] 1 gm PO QID PRN #240 ml PRN Reason: abdominal pain
[2017-06-20 09:33] LABS: ALANINE AMINOTRANSFERASE 41 IU/L (9-52); ALBUMIN 4.2 g/dL (3.5-5.0); ALKALINE PHOSPHATASE 59 IU/L (38-126); ANION GAP 13 mEq/L (8-16); ASPARTATE AMINOTRANSFERASE 27 IU/L (14-46); BILIRUBIN,TOTAL 0.2 mg/dL (0.1-1.4); BILIRUBIN-CONJUGATED 0.1 mg/dL (0.0-0.5); BILIRUBIN-UNCONJUGATED 0.1 mg/dL (0.0-1.1); CALCIUM 9.2 mg/dL (8.5-10.4); CARBON DIOXIDE 23 mEq/l (22-31); CHLORIDE 107 mEq/L (97-110); CREATININE 0.6 mg/dL (0.6-1.0); GLOMERULAR FILTRATION RATE > 60; GLUCOSE 86 mg/dL (70-100); POTASSIUM 3.9 mEq/L (3.5-5.2); SODIUM 143 mEq/L (134-144); TOTAL PROTEIN 7.2 g/dL (6.3-8.2)
[2017-06-20 09:44] LABS: TROPONIN I < 0.012 ng/mL (0.000-0.034)
--- NOTE | 2017-06-20 09:50 | CPEKG ---
Heart Rate: 57 RR Interval: 1053 P-R Interval: 140 QRSD Interval: 96 QT Interval: 388 QTC Interval: 378 P [place]: 69 QRS [place]: 60 T Wave [place]: 22 EKG Severity - BORDERLINE ECG - EKG Impression: SINUS RHYTHM EKG Impression: BORDERLINE T WAVE ABNORMALITIES Electronically Signed By: Morgan Walsh 20-Jun-2017 09:56:53
[2017-06-20] MEDS ORDERED: KETAMINE 100 MG/10 ML SYR IVP ONE (09:59)
[2017-06-20 10:27] VITALS: RESP 16
[2017-06-20 10:40] LABS: COLOR YELLOW; LEUKOCYTE ESTERASE,URINE NEGATIVE (NEGATIVE); NITRITE,URINE NEGATIVE (NEGATIVE)
[2017-06-20 10:43] LABS: MUCUS 2+ /lpf (NONE-1+)
[2017-06-20 11:26] VITALS: BP 125/70; PULSE 70; TEMP 97.7; O2SAT 99
== END 2017-06-20 11:26 | disposition home or self-care (01) ==
DX: R10.13 Epigastric pain (principal); F17.210 Nicotine dependence, cigarettes, uncomplicated; E86.9 Volume depletion, unspecified; Z90.49 Acquired absence of other specified parts of digestive tract
CPT/HCPCS: 96374